=== PATIENT | female | born 1990 | race Two or more races ===

== ENCOUNTER 2023-05-02 04:47 | Emergency (ER) | payer OTHER ==
[~2023-05-02] VITALS: Ht 177.8 cm; Wt 86.2 kg
[2023-05-02] MEDS ORDERED: DICLOFENAC SODI75 MG PO (08:25)
== END 2023-05-02 08:37 | disposition home or self-care (01) ==
LOC: ER 04:47
DX: R53.81 Other malaise (principal); M94.0 Chondrocostal junction syndrome [Tietze]; Z88.0 Allergy status to penicillin

== ENCOUNTER 2024-01-17 12:50 | Outpatient (CLI) | payer OTHER ==
[~2024-01-17 12:50] MED LIST: DICLOFENAC SODI75 MG PO
== END 2024-01-17 13:01 | disposition home or self-care (01) ==
LOC: SONOGRAMA 12:50
PROVIDERS: ATTEND Pathology Anatomic Pathology & Clinical Pathology
DX: D34 Benign neoplasm of thyroid gland (principal); E07.89 Other specified disorders of thyroid; E04.2 Nontoxic multinodular goiter; E04.9 Nontoxic goiter, unspecified

== ENCOUNTER 2024-11-12 16:16 | Emergency (ER) | payer OTHER ==
[~2024-11-12] VITALS: Ht 177.8 cm; Wt 81.6 kg
[2024-11-12] MEDS ORDERED: FAMOTIDINE/PF 20 MG/2 ML VIAL IV ONE (17:45)
[2024-11-12] MEDS ORDERED: 0.9 % SODIUM CHLORIDE 1,000 ML IV ONE (17:45)
[2024-11-12] MEDS ORDERED: LACTOBACILLUS ACIDOPHILUS 1 CAP CAP PO ONE (17:45)
[2024-11-12 18:01] LABS: BASO % 1.0 % (0.1-1.2); EOS # 0.34 (0.04-0.54); EOS % 6.8 % (0.7-7.0); LYMPH # 1.33 (1.18-3.74); LYMPH % 26.8 % (19.3-53.1); MEAN PLATELET VOLUME 9.60 fl (9.4-12.4); MONO # 0.43 (0.24-0.82); MONO % 8.7 % (4.7-12.5); NEUT # 2.82 (1.56-6.13); NEUT % 56.7 % (34.0-71.1); RED CELL DISTRIBUTION WIDTH 11.8 % (11.6-14.4)
[2024-11-12 18:19] LABS: GLUCOSE FASTING 103.0 mg/dL (65-100); OSMOLALITY SERUM 281.0 MOSM/KG (275-295)
[2024-11-12 18:21] LABS: URINE APPEARANCE Clear; URINE BILIRRUBIN Negative (NEGATIVE); URINE BLOOD Negative; URINE COLOR Yellow; URINE GLUCOSE Negative (NEGATIVE); URINE KETONE Negative (NEGATIVE); URINE LEUKOCYTE Negative; URINE NITRATE Negative; URINE PROTEIN Negative (NEGATIVE); URINE UROBILINOGEN 0.2 E.U./dl
[2024-11-12 18:23] LABS: ALT/SGPT 19.0 U/L (12-78); AST/SGOT 10.0 U/L (15-37); BILIRUBIN TOTAL 0.26 mg/dL (0.3-1.2); BUN CREA RATIO 21.0 (7.0-25.0); CREATININE SERUM 0.77 mg/dL (0.55-1.02); GFR 85.81; GLOBULINA 4.4 G/DL (2.4-3.5)
[2024-11-12 18:25] LABS: URINE BACTERIA 20.3 uL (0.0-1933); URINE EPITHELIAL CELLS 2.1 uL (0.0-38.8); URINE RBC 5.1 uL (0.0-20.8); URINE WBC 2.4 uL (0.0-23.2)
[2024-11-12 18:27] LABS: URINE CAST 0.14 uL (0.0-1.40)
[2024-11-12 18:29] LABS: COVID-19 AG NEGATIVE (NEGATIVE)
[2024-11-12] MEDS ORDERED: INTESTINEX680 M1 PO (21:23)
[2024-11-12] MEDS ORDERED: PEPCID AC20 MG PO (21:23)
[2024-11-12] MEDS ORDERED: LEVSIN0.125 MG PO (21:23)
[2024-11-12] MEDS ORDERED: METRONIDAZOLE500 MG PO (21:23)
[2024-11-12] MEDS ORDERED: PRILOSEC OTC20 MG PO (21:23)
[2024-11-12] MEDS ORDERED: CIPRO500 MG PO (21:23)
[2024-11-12] MEDS ORDERED: MAG HYDROX/ALUMINUM HYD/SIMETH 30 ML BLIST.PACK PO ONE (21:30)
== END 2024-11-12 22:04 | disposition home or self-care (01) ==
LOC: ER 17:20
PROVIDERS: General Practice
DX: K52.89 Other specified noninfective gastroenteritis and colitis (principal); R10.13 Epigastric pain; Z88.0 Allergy status to penicillin; Z91.013 Allergy to seafood; Z20.822 Contact with and (suspected) exposure to COVID-19